=== PATIENT | female | born 1935 | race Caucasian/White ===

== ENCOUNTER 2020-12-21 17:17 | Emergency (ER) | payer MEDICARE, OTHER ==
[~2020-12-21] VITALS: Ht 165.1 cm; Wt 85.7 kg
--- NOTE | 2020-12-21 17:50 | NUR ---
[id number] FRM INDEPENDENT LIVING, LLE LACERATION S/P GLF IN BATHROOM. RATES PAIN 10. WILL CONTINUE TO MONITOR THE PATIENT.
[2020-12-21] MEDS ORDERED: LIDOCAINE 0.5%-EPI 1:200,000 50 ML VIAL ONE (17:51)
[2020-12-21] MEDS ORDERED: LIDOCAINE HCL/PF 1% 30 ML VIAL TP ONE (18:00)
[2020-12-21] MEDS ORDERED: TDAP [DIPH/PERTUSSIS/TET] 0.5 ML VIAL IM ONE ×2 (18:00→19:15)
[2020-12-21] MEDS ORDERED: BACI/NEOM/POLY B OINT PKT 1 UDPKT PACKET TP ONE (18:00)
--- NOTE | 2020-12-21 19:28 | NUR ---
called sarbjit, ambulance, eta 75-90min
[2020-12-21 19:46] VITALS: BP 141/69
--- NOTE | 2020-12-21 19:50 | NUR ---
Patient discharged to home in stable condition. Written and verbal after care instructions given. Patient verbalizes understanding of instruction. Pt awaiting ambulance slate picker
--- NOTE | 2020-12-21 20:00 | NUR ---
gave report to em[facility]
== END 2020-12-21 20:00 | disposition home or self-care (01) ==
LOC: ER 17:19
DX: S81.812A Laceration without foreign body, left lower leg, initial encounter (principal); M19.90 Unspecified osteoarthritis, unspecified site; W18.39XA Other fall on same level, initial encounter; Y93.89 Activity, other specified; Y92.091 Bathroom in other non-institutional residence as the place of occurrence of the external cause; Y99.8 Other external cause status
CPT/HCPCS: 12005; 73590; 90471; 90715; 99283; J3490 ×2